=== PATIENT | female | born 2005 | race Caucasian/White ===

== ENCOUNTER 2023-03-02 17:32 | Emergency (ER) | payer OTHER, SELFPAY ==
[2023-03-02 17:35] VITALS: BP 126/96; PULSE 72; RESP 18; TEMP 36.7; O2SAT 100; BMI 22.9
--- NOTE | 2023-03-02 17:39 | CM.ED ---
Social Work SW was contacted by [facility] counselor, Trudy, prior to patient presenting in ED to discuss safety concerns. Trudy reports the patient has a history of SI but reports constant thoughts over the past three days. Patient does not have a history of self harm, however, the past three days patient has engaged in non-suicidal self-harm three times. Patient was prescribed medications for bipolar and depression in November with limited follow up, but reports symptoms have continued to worsen. Trudy assisted the patient in completing the [place] Suicide Screening, patient is high risk for suicide. Trudy also reports patient has a plan to OD on bipolar medications and intent. Plan: MH evaluation once patient is medically cleared GERONIMO Rapp
[2023-03-02 17:59] LABS: Absolute Lymphocyte Count 1.65 X10^3/uL (0.83-4.51); Absolute Neutrophil Count 5.2 X10^3/uL (2.0-7.7); Basophil# 0.04 X10^3/uL; Basophil% 0.5 % (0-1); Eosinophil# 0.08 X10^3/uL; Hematocrit 39.4 % (37-47); Hemoglobin 13.2 g/dL (12.0-15.0); Lymphocyte # 1.65 X10^3/ul (0.83-4.51); Lymphocyte % 21.7 % (19-41); Mean Corp Hgb Conc 33.5 g/dL (32-36); Mean Corpuscular Hgb 30.2 pg (27.0-32.0); Mean Corpuscular Volume 90.2 fL (81-99); Monocyte# 0.61 X10^3/uL; NRBC Flagged by Analyzer 0 % (0-5); Neutrophil # 5.22 X10^3/uL (2.7-7.7); Neutrophil % 68.5 % (47-70); Platelet Count 294 K/mm3 (150-450); RBC Distribution Width CV 13.6 % (11.6-14.6); RBC Distribution Width SD 45.3 fl (35.1-43.9); Red Blood Count 4.37 M/mm3 (4.2-5.4); White Blood Count 7.6 K/mm3 (4.4-11.0)
[2023-03-02 18:20] LABS: Alcohol, Blood (Medical)-Serum < 3.0 mg/dL
[2023-03-02 18:22] LABS: Anion Gap 8 (5-15); BUN 10 mg/dL (7-18); BUN/Creat Ratio 11.6 RATIO (10-20); Calcium,Total 9.2 mg/dL (8.5-10.1); Chloride 103 mmol/L (98-107); Creatinine, Serum 0.86 mg/dL (0.55-1.02); EST Glomerular Filtration Rate 89 mL/min (>60); Est Glom Filt Rate - Afr Amer 108 mL/min (>60); Estimated Creatinine Clearance 97.68 ml/min; Glucose 95 mg/dL (74-106); Potassium 3.5 mmol/L (3.5-5.1); Sodium Level 136 mmol/L (136-145)
[2023-03-02 18:24] LABS: Internal QC Validated? YES +Cl - CLEAR BKGD; Pregnancy, Serum, hCG Quali. NEGATIVE Negative
[2023-03-02 18:40] LABS: Amphetamine Urine VISTA NEGATIVE (<1000 ng/mL); Barbiturate Urine VISTA NEGATIVE (< 200 ng/mL); Benzodiazepine Urine VISTA NEGATIVE (< 200 ng/mL); Cocaine Urine VISTA NEGATIVE (< 300 ng/mL); Ecstacy Urine VISTA NEGATIVE (< 500 ng/mL); Methadone Urine VISTA NEGATIVE (< 300 ng/mL); PCP Urine VISTA NEGATIVE (< 25 ng/mL); THC Urine VISTA POSITIVE (< 50 ng/mL); Vista UDS pH Range 7
--- NOTE | 2023-03-02 18:55 | EDS_ITS ---
HPI HPI - Psych History of Present Illness Chief Complaint: Suicidal Informant: patient Narrative Narrative: Presents with suicidal thoughts. Patient has a history of bipolar. She is on Lamictal and Lexapro for this. The last few weeks she has been having suicidal thoughts but they have really increased over the last few days. She thought of overdosing on pills and cutting herself. The last few days she has cut herself on the right leg. Last tetanus is 2 to 3 years ago. She was seen at the [facility] and referred over here. Her second year in college here. PFSH PFSH Home Medications escitalopram oxalate 10 mg tablet (Lexapro) 10 mg PO QHS 03/02/23 [History Last Taken 03/01/23] fexofenadine 180 mg tablet (Aleah Allergy) 180 mg PO DAILY 03/02/23 [History Last Taken 03/01/23] lamotrigine 200 mg tablet (Lamictal) 200 mg PO QHS 03/02/23 [History Last Taken 03/01/23] montelukast 10 mg tablet (Singulair) 10 mg PO QHS 03/02/23 [History Last Taken 03/01/23] norgestimate 0.25 mg-ethinyl estradiol 35 mcg tablet (Sprintec (28)) 1 tab PO DAILY 03/02/23 [History Last Taken 03/01/23] Allergy/AdvReac Type Severity Reaction Status Date / Time Sulfa (Sulfonamide AdvReac Rash Verified 03/02/23 17:34 Antibiotics) Social History Smoking Status: Never smoker ROS ROS ED Constitutional Constitutional ED: Denies chills or fever(s) Eyes Eyes: Denies change in vision ENT ENT ED: Denies rhinorrhea Cardiovascular Cardiovascular: Denies chest pain or palpitations Respiratory/Chest Respiratory/Chest: Denies cough Gastrointestinal Gastrointestinal: Denies abdominal pain, diarrhea, nausea or vomiting Genitourinary Genitourinary ED: Denies dysuria Musculoskeletal Musculoskeletal: Denies myalgias Integumentary Denies rash Neurologic Neurologic: Denies headache(s) Psychiatric Psychiatric: Reports anxiety, depression, suicidal ideation and suicidal thoughts Endocrine Endocrinology: Denies polydipsia or polyuria Hematologic/Lymphatic Hematologic/Lymphatic: Denies easy bleeding or easy bruising Allergic/Immunologic Allergic/Immunologic ED: Denies urticaria EXAM Physical Exam Narrative Exam Narrative: Awake alert no acute distress sitting comfortably on the bed and cooperative. HEENT shows no trauma. Mucous membranes are moist. Neck is supple. Lungs are clear bilaterally and saturations are normal at 100% on room air sh owing no hypoxia. Heart is regular. I hear no murmur. Peripheral pulses are normal. Abdomen soft nontender. Extremities do show a series of superficial abrasions along the right proximal thigh. None of these need any specific treatment suturing tissue adhesive or antibiotics. Neurologic she is awake alert appropriate. Psychiatry: She admits to suicidal thoughts. She does make good eye contact. She has a minimally flat affect. No flight of ideas. No paranoia. Const Vital Signs: 03/02/23 17:35 Temperature 98.1 F Temperature Source Temporal Pulse Rate 72 Respiratory Rate 18 Blood Pressure 126/96 H Blood Pressure Mean 106 Pulse Ox 100 Oxygen Delivery Method Room Air MDM MDM MDM Narrative Medical decision making narrative: Patient CBC shows no acute abnormalities. Patient's electrolytes are normal. Patient's serum is negative. Patient's toxicology urine test is positive for cannabinoids. Patient's serum alcohol is negative. Patient's COVID is negative. Patient is medically cleared for psychiatric evaluation and admission. She has been accepted in transfer. Lab Data Attestation: I reviewed the patient's lab results. Labs: Laboratory Results - last 24 hr 03/02/23 03/02/23 17:47 18:10 WBC 7.6 RBC 4.37 Hgb 13.2 Hct 39.4 MCV 90.2 MCH 30.2 MCHC 33.5 RDW Std Deviation 45.3 H RDW Coeff of Rusty 13.6 Plt Count 294 MPV 10.0 Immature Gran % (Auto) 0.300 Neut % (Auto) 68.5 Lymph % (Auto) 21.7 [place] % (Auto) 8.0 Eos % (Auto) 1.0 Baso % (Auto) 0.5 Absolute Neuts (auto) 5.2 Absolute Lymphs (auto) 1.65 Nucleated RBC % 0 Sodium 136 Potassium 3.5 Chloride 103 Carbon Dioxide 25.0 Anion Gap 8 BUN 10 Creatinine 0.86 Estim Creat Clear Calc 97.68 Est GFR (MDRD) Af Amer 108 Est GFR (MDRD) Non-Af 89 BUN/Creatinine Ratio 11.6 Glucose 95 Calcium 9.2 Serum , Qual NEGATIVE Urine Opiates Screen NEGATIVE Urine Methadone Screen NEGATIVE Ur Barbiturates Screen NEGATIVE Ur Phencyclidine Scrn NEGATIVE Ur Amphetamines Screen NEGATIVE MDMA (Ecstasy) Screen NEGATIVE U Benzodiazepines Scrn NEGATIVE Urine Cocaine Screen NEGATIVE U Cannabinoids Screen POSITIVE H Ur Drug Screen Comment Ethyl Alcohol < 3.0 Discharge Plan Triage Chief Complaint: Suicidal ED Provider: Ramy Cha Dx/Rx/DC Orders Clinical Impression: Hx of bipolar disorder, Suicidal ideation Prescriptions: No Action escitalopram oxalate [Lexapro] 10 mg tablet 10 mg PO QHS lamotrigine [Lamictal] 200 mg tablet 200 mg PO QHS fexofenadine [Aleah Allergy] 180 mg tablet 180 mg PO DAILY montelukast [Singulair] 10 mg tablet 10 mg PO QHS norgestimate-ethinyl estradiol [Sprintec (28)] 0.25-35 mg-mcg tablet 1 tab PO DAILY Primary Care Provider: Care Physician,No Primary Referrals: [facility] Doctor,Out of [Non-Staff] - Disposition Disposition: Psychiatric Hospital or Unit
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
--- NOTE | 2023-03-02 20:17 | CM.ED ---
Social Work SW contacted [facility] to inquire about bed availability, beds available. SW provided verbal referral and faxed referral packet. Plan: referral pending at [facility] Alanna SANDHU, GERONIMO
--- NOTE | 2023-03-02 20:45 | CM.ED ---
Social Work Patient accepted to [facility] by MD Graff, [place] [address], [address] [phone]. ANNIKA faxed pink slip to HS. ANNIKA updated care team, community advocate to arrange transportation, ETA 7AM. SW updated patient of acceptance to [facility]. Patient agreeable to have SW update [facility] counselor. SW attempted to contact [facility] counselor, Trudy, and left a VM regarding D/C plan. Plan: [facility] for inpatient psychiatric hospitalization Alanna SANDHU, GERONIMO
[2023-03-02] MEDS: Montelukast 10 MG Tablet PO (22:00)
[2023-03-02] MEDS: Escitalopram Oxalate 10 MG Tablet PO (22:00)
[2023-03-02] MEDS: lamoTRIgine 100 MG Tablet 200 MG PO (22:00)
[2023-03-02] MEDS: NORGESTIMATE-ETHINYL ESTRADIOL 1 DOSE.PACK 1 TABLET PO (22:18)
[2023-03-02 22:49] VITALS: BP 108/57; PULSE 73; RESP 18; O2SAT 98
[2023-03-03 03:20] VITALS: RESP 16
[2023-03-03 04:47] VITALS: RESP 16
[2023-03-03 05:37] VITALS: BP 110/70; PULSE 68; RESP 18; O2SAT 98
[2023-03-03 06:01] VITALS: RESP 16
--- NOTE | 2023-03-03 07:33 | NURSING ---
[facility], CALLED. ETA IS 6 MIN
== END 2023-03-03 08:10 ==
PROVIDERS: Emergency Provider Emergency Medicine; Visit Provider Emergency Medicine
DX: R45.851 Suicidal ideations (principal); F31.9 Bipolar disorder, unspecified; Z79.899 Other long term (current) drug therapy
CPT/HCPCS: 36415; 80048; 80307; 82077; 84703; 85025; 87811; 99285

== ENCOUNTER 2024-09-26 12:09 | Emergency (ER) | payer BC, SELFPAY ==
[2024-09-26 12:10] VITALS: BP 131/90; PULSE 113; RESP 18; TEMP 36.6; O2SAT 98; BMI 33.9
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
--- NOTE | 2024-09-26 15:49 | ED.RN ---
RN in to D/C pt. pt crying, [facility] in [place] told her she needed rabies vaccine. angry about wait time. This RN attempted to explain procedure of ED triage but pt stated she wanted to leave. Pt has left department.
== END 2024-09-26 15:56 | disposition home or self-care (01) ==
LOC: ED 15:48
PROVIDERS: Emergency Provider Emergency Medicine; Visit Provider Emergency Medicine
DX: Z00.00 Encounter for general adult medical examination without abnormal findings (principal); R00.0 Tachycardia, unspecified; R03.0 Elevated blood-pressure reading, without diagnosis of hypertension
CPT/HCPCS: 99282